=== PATIENT | male | born 1955 | race Caucasian/White ===

== ENCOUNTER → 2022-08-04 10:49 | Outpatient (CLI) | payer MEDICARE, OTHER, SELFPAY ==
--- NOTE | ~2022-08-04 | US_ITS ---
EXAMINATION: US aorta [facility] scrn DATE: 08/04/2022 11:28 INDICATION: Prior tobacco use, hypercholesterolemia, diabetes, obesity, myocardial infarction TECHNIQUE: Grayscale, color Doppler, and pulsed Doppler images of the aorta and common iliac arteries were obtained. COMPARISON: None. FINDINGS: Maximum vascular dimensions are as follows: Proximal aorta: 3.0 cm Mid aorta: 2.8 cm Distal aorta: 2.3 cm Right common iliac artery: 1.7 cm Left common iliac artery: 1.2 cm There is no evidence of abdominal aortic aneurysm. IMPRESSION: 1. No sonographic evidence of abdominal aortic aneurysm. Reviewed, dictated and finalized at location A.
--- NOTE | ~2022-08-04 | CT_ITS ---
EXAMINATION: CT lung screening DATE: 08/04/2022 11:17 INDICATION: Personal history of nicotine dependence, current smoker with 60 pack year history TECHNIQUE: Computed tomography (CT) of the chest was performed without intravenous contrast. The dose -length product (DLP) was 302.22 mGy-cm. Automated exposure control and iterative reconstruction tech [employer] were employed. COMPARISON: 12/15/2012 FINDINGS: There is mild emphysema. Calcified pulmonary nodules are consistent with old granulomatous disease. No suspicious pulmonary nodules are identified. There are changes of coronary artery bypass grafting. The heart size is normal. There is a small left pleural effusion with associated left lower lobe atelectasis. No pathologically enlarged thoracic lymph nodes are identified. The heart size is normal. The gallbladder is surgically absent. There is moderate thoracic spondylosis. IMPRESSION: 1. Lung-RADS category 1S: Negative. Continue annual screening with noncontrast low-dose chest CT in 1 2 months. 2. Small left pleural effusion with mild associated atelectasis in the left lower lobe. Reviewed, dictated and finalized at location A. IMPRESSION: 1. Lung-RADS category 1S: Negative. Continue annual screening with noncontrast low-dose chest CT in 12 months. 2. Small left pleural effusion with mild associated atelectasis in the left low er lobe.
== END ==
PROVIDERS: PCP Family Medicine; Visit Provider Physician Assistant
DX: Z12.2 Encounter for screening for malignant neoplasm of respiratory organs (principal); Z13.6 Encounter for screening for cardiovascular disorders; J90 Pleural effusion, not elsewhere classified; J98.11 Atelectasis; Z87.891 Personal history of nicotine dependence
CPT/HCPCS: 71271; 76706

== ENCOUNTER → 2023-07-14 14:57 | Outpatient (CLI) | payer MEDICARE, OTHER, SELFPAY ==
--- NOTE | ~2023-07-14 | US_ITS ---
US soft tissue groin RT 07/14/2023 15:20 Indication: Right inguinal mass Procedure: High-resolution ultrasound of the right inguinal soft tissues Comparison: No prior studies for comparison. Findings: There is a large complex predominantly hypoechoic vascular mass of the right inguinal locat ion measuring 6.6 x 5.9 x 3.4 cm. There is an adjacent smaller hypoechoic nodule located slightly sup erficial to the dominant mass measuring 1.6 cm. No definitive contiguity with the adjacent vascular s tructures is seen. This corresponds to the area of palpable concern. Impression: 1: Large complex vascular mass measuring 6.6 cm in the right inguinal location. There is an adjacent 1.6 cm satellite nodule. Differential diagnosis includes pseudoaneurysm, pathologic vascular lymph no de secondary to malignancy or metastatic disease. Recommend surgical consultation. Reviewed, dictated and finalized at location L. Impression: 1: Large complex vascular mass measuring 6.6 cm in the right inguinal location. There is an adjacent 1.6 cm satellite nodule. Differential diagnosis includes pseudoaneurysm, pathologic vascular lymph node secondary to malignancy or metas tatic disease. Recommend surgical consultation.
== END ==
PROVIDERS: PCP Family Medicine; Visit Provider Family Medicine
DX: R22.2 Localized swelling, mass and lump, trunk (principal)
CPT/HCPCS: 76882